=== PATIENT | male | born 1980 | race Caucasian/White ===

== ENCOUNTER 2019-12-21 08:57 | Outpatient (REF) | payer OTHER, SELFPAY | END 2019-12-21 08:58 | disposition home or self-care (01) | LOC: HO.LAB 08:57 | PROVIDERS: Visit Provider Internal Medicine | DX: Z20.828 Contact with and (suspected) exposure to other viral communicable diseases (principal) | CPT/HCPCS: 87635 ==

== ENCOUNTER 2021-02-13 07:09 | Emergency (ER) | payer MEDICAID, SELFPAY ==
--- NOTE | ~2021-02-13 | US_ITS ---
EXAMINATION: US VENOUS ULTRASOUND WITH DOPPLER LOWER EXTREMITY, LEFT CLINICAL INFORMATION: Swelling, redness and pain. COMPARISON: None TECHNIQUE: Ultrasound of the deep veins is performed from the hip to the calf with compression sonography and color and pulse Doppler assessment. Spectral analysis with color-flow imaging is performed. FINDINGS: There is normal venous compression and respiratory variation and augmented flow. The visualized common femoral vein, superficial femoral vein, profunda femoral vein, popliteal vein, and the trifurcation region shows no evidence of deep venous thrombosis. There is no significant popliteal fossa cyst. Incidental finding of enlarged groin nodes with the largest lymph node measuring 4.7 x 1.2 cm. If the patient's symptoms persist, followup ultrasound in 5 days 7 days might be of value to exclude proximal propagation from a non-visualized calf vein. US/US venous duplex LE IMPRESSION: No DVT demonstrated in the left lower extremity. Nonspecific left groin lymph nodes.
[2021-02-13 07:27] VITALS: BP 138/63; PULSE 91; RESP 19; TEMP 36.6; O2SAT 99; BMI 31.6
[2021-02-13 08:00] VITALS: BP 114/51; PULSE 81; RESP 14; TEMP 36.8; O2SAT 97
--- NOTE | 2021-02-13 08:00 | ED_ITS ---
HPI - Wound/Laceration General Chief Complaint: Wound/Laceration Stated Complaint: spider bite Time Seen by Provider: 02/13/21 07:58 Source: patient Mode of arrival: ambulatory Limitations: no limitations History of Present Illness HPI narrative: 41 y/o male presents to the ER with reddened, painful area on the front of his left lower leg that he thinks is a spider bite. He reports that it started 3 days ago and has gotten worse. His girlfriend looked at it yesterday and thought she saw 2 small dots in the center making him think it was a spider bite. Last night he reports chills and cold sweats, he thinks he had a fever. He did not check his temperature. He reports the redness on the front of his left lower leg has gotten bigger and more swollen in the last 2 days. He denies any drainage. He denies any posterior leg pain or swelling. Shortness of breath or chest Onset (ago): day(s) (3) Extremity Location: left: lower leg (Anterior ) Place: home Patient tetanus UTD: Yes Context: accidental Associated symptoms: pain and fever (Subjective) Treatments prior to arrival: NSAIDS Related Data Previous Rx's Medication Instructions Recorded cephalexin 500 mg capsule 500 mg PO Q6H 7 Days #28 cap 02/13/21 doxycycline monohydrate 100 mg 100 mg PO BID #14 cap 02/13/21 capsule ibuprofen 800 mg tablet 800 mg PO Q8H PRN #14 tab 02/13/21 Allergies Allergy/AdvReac Type Severity Reaction Status Date / Time Unable to Assess Allergy Unverified 02/13/21 08:19 Review of Systems Review of Systems: Constitutional: + Fever, + Chills ENT/Mouth: No sore throat, No Rhinorrhea Cardiovascular: No Chest Pain, No SOB Gastrointestinal: No Nausea, No Vomiting No abdominal Pain Musculoskeletal: No joint pain, No Myalgias Skin: + Skin Lesions, No rash Neuro: No Weakness, No Numbness Heme/Lymph: No Bruising, No Lymphadenopathy PMFSH Social History Social History Alcohol intake: never Patient Tobacco Use Status: Current everyday Tobacco user Use of substances other than those prescribed or required for medical reasons: No Advance Directives: No Advance Directives Information Provided: No Physical Exam Vital Signs: Vital Signs: Last Vital Signs Temp 98.2 F 02/13/21 08:00 Pulse 81 02/13/21 08:00 Resp 14 02/13/21 08:00 BP 114/51 L 02/13/21 08:00 Pulse Ox 97 02/13/21 08:00 BMI result Body Mass Index 31.6 Appearance: Alert. Oriented X3. No acute distress. HEENT: normal inspection CVS: Normal heart rate and rhythm. Pulses normal. Respiratory: No respiratory distress. Lungs clear throughout Skin: Skin warm and dry. Normal skin color. Normal skin turgor. No rashes. Extremities: Left anterior lower leg with a large area of mild erythema and swelling. There is a 2-3 cm dark erythematous, indurated area in the superior lateral aspect of the left lower leg with no fluctuance. No calf tenderness. Erythema is not circumferential. Neuro: Oriented X 3. No motor deficit. No sensory deficit. Course Course Course Narrative: 41-year-old male presents to the ER with a left lower extremity cellulitis and possible early abscess. This may be due to a spider bite. He reports fevers at home but is afebrile on arrival with normal vital signs. He is nontoxic appearing. Will check lab workup including lactic acid and blood cultures. Will give a dose of IV Ancef now. Will also check lower extremity ultrasound to rule out DVT. Reevaluation(s) Reevaluation #1: Lab workup is reassuring with normal WBC. Lactic acid is n ormal. Lower extremity ultrasound is negative for DVT. Will treat for cellulitis with both doxycycline and Keflex for 1 week and have him follow-up with his primary care doctor. The erythematous and cellulitic area has been outlined with a skin marker and he was advised to seek medical attention if the erythema and swelling is spreading beyond the marker. Patient expressed understanding and is stable for discharge home. MDM - Wound/Laceration Lab Data Result diagrams: 02/13/21 08:11 02/13/21 08:45 Labs: Lab Results 02/13/21 02/13/21 02/13/21 Range/Units 08:11 08:45 08:45 WBC 10.2 (4.8-10.8) X10*3/uL RBC 4.63 (4.60-5.80) X10*6/uL Hgb 13.4 L (14.0-18.0) g/dl Hct 40.6 L (42.0-52.0) % MCV 87.7 (80.0-98.0) fL MCH 28.9 (27.0-33.0) pg MCHC 33.0 (31.0-36.0) g/dl RDW 12.8 (11.0-16.0) % Plt Count 281 (160-400) X10*3/uL MPV 9.8 (9.4-12.4) fL Immature Gran % (Auto) 0.3 (0.0-0.4) % Neut % (Auto) 80.6 H (45-73) % Lymph % (Auto) 10.0 L (20-40) % [place] % (Auto) 7.0 (2-11) % Eos % (Auto) 1.8 (0-4) % Baso % (Auto) 0.3 (0-2) % Lymph # (Auto) 1.0 L (1.2-4.9) X10*3/uL [place] # (Auto) 0.7 (0.1-1.2) X10*3/uL Eos # (Auto) 0.2 (0.0-0.4) X10*3/uL Baso # (Auto) 0.0 (0.0-0.2) X10*3/uL Abs Immat Gran (auto) 0.03 (0.00-0.03) X10*3/uL Absolute Neuts (auto) 8.2 (2.0-8.3) x10*3/uL Absolute Nucleated RBC 0.000 (0.0-0.012) X10*3/uL Nucleated RBC % (auto) 0.0 (0.0-0.2) /100WBC Sodium 138 (135-145) mmol/L Potassium 4.1 (3.3-5.1) mmol/L Chloride 105 (96-108) mmol/L Carbon Dioxide 25 (22-29) mmol/L Anion Gap 12 (12-20) BUN 20 H (9-16) mg/dL Creatinine 1.07 (0.5-1.4) mg/dL Estim Creat Clear Calc 107.6 Estimated GFR > 60 Random Glucose 126 H (60-115) mg/dL Lactic Acid 0.9 (0.5-2.0) mmol/L Calcium 9.4 (8.4-10.2) mg/dL Critical Care Time Critical Care Time Critical Care Time: No Discharge Plan Discharge Clinical Impression: Cellulitis Qualifiers: Site of cellulitis: extremity Site of cellulitis of extremity: lower extremity Laterality: left Qualified Code(s): L03.116 - Cellulitis of left lower limb Patient Disposition: Home, Self-Care Instructions: Cellulitis (ED), Warm Compress or Soak (ED) Additional Instructions: Take both of the prescribed antibiotic as directed. Use warm compresses several times a day to help increased blood from 0 If you notice the redness is expanding beyond the marked area, or if you have increased pain, swelling or any other concerning symptoms come back to the ER for further evaluation. Follow-up with your doctor next week Prescriptions: New doxycycline monohydrate 100 mg capsule 100 mg PO BID Qty: 14 RF: 0 cephalexin 500 mg capsule 500 mg PO Q6H 7 Days Qty: 28 RF: 0 ibuprofen 800 mg tablet 800 mg PO Q8H PRN (Reason: fever or pain) Qty: 14 RF: 0 Interventions: ED Discharge Assessment Last Done: 02/13/21 09:41
[2021-02-13 08:16] LABS: MANUAL DIFF FLAG NO
[2021-02-13 08:18] LABS: Basophils Percent Auto 0.3 % (0-2); Eosinophils Absolute Auto 0.2 X10*3/uL (0.0-0.4); Eosinophils Percent Auto 1.8 % (0-4); Hematocrit 40.6 % (42.0-52.0); Hemoglobin 13.4 g/dl (14.0-18.0); Imm Gran Abs Auto 0.03 X10*3/uL (0.00-0.03); Imm Gran Pct Auto 0.3 % (0.0-0.4); Mean Corpuscular Hemoglobin 28.9 pg (27.0-33.0); Mean Corpuscular Volume 87.7 fL (80.0-98.0); Mean Platelet Volume 9.8 fL (9.4-12.4); Monocytes Absolute Auto 0.7 X10*3/uL (0.1-1.2); Neutrophils Absolute Auto 8.2 x10*3/uL (2.0-8.3); Neutrophils Percent Auto 80.6 % (45-73); Platelet Count 281 X10*3/uL (160-400); Red Blood Count 4.63 X10*6/uL (4.60-5.80); Red Cell Distribution Width 12.8 % (11.0-16.0); White Blood Count 10.2 X10*3/uL (4.8-10.8)
[2021-02-13 09:04] LABS: Lactic Acid 0.9 mmol/L (0.5-2.0)
[2021-02-13 09:11] LABS: Anion Gap 12 (12-20); Blood Urea Nitrogen 20 mg/dL (9-16); Calcium 9.4 mg/dL (8.4-10.2); Carbon Dioxide 25 mmol/L (22-29); Chloride 105 mmol/L (96-108); Creatinine Clr Calc Pharmacy 107.6; Estimated Glomerular Filt Rate > 60; Glucose Random 126 mg/dL (60-115); Potassium 4.1 mmol/L (3.3-5.1); Sodium 138 mmol/L (135-145)
== END 2021-02-13 09:41 | disposition home or self-care (01) ==
PROVIDERS: Physician Assistant; Emergency Provider Emergency Medicine
DX: L03.116 Cellulitis of left lower limb (principal); M79.605 Pain in left leg
CPT/HCPCS: 36415; 80048; 83605; 85025; 87040; 93971; 96365; 99284; J0690